=== PATIENT | female | born 1945 | race Two or more races ===

== ENCOUNTER 2018-06-20 16:26 | Emergency (ER) | payer OTHER ==
[2018-06-20 16:47] LABS: ADD MAN DIFF? NO
[2018-06-20] MEDS: morphine 4 MG/ML VIAL IV (16:49)
[2018-06-20] MEDS: ONDANSETRON 4 MG INJ IV (16:50)
[2018-06-20] MEDS: SOD CHLORIDE 0.9% 1,000 ML IV (16:50)
[2018-06-20 16:53] LABS: BASOPHILS % 0.3 % (0.0-2.0); EOSINOPHILS # 0.1 10^3/ul (0.0-0.5); EOSINOPHILS % 0.8 % (0.0-7.0); HEMATOCRIT 39.7 % (37.0-47.0); HEMOGLOBIN 13.1 g/dl (12.0-16.0); LYMPHOCYTES # 2.8 10^3/ul (0.8-2.9); LYMPHOCYTES % 24.1 % (15.0-51.0); MEAN CORPUSCULAR HEMOGLOBIN 30.4 pg (29.0-33.0); MEAN CORPUSCULAR VOLUME 92.1 fl (82.0-101.0); MEAN PLATELET VOLUME 10.1 fl (7.4-10.4); MONOCYTE # 0.8 10^3/ul (0.3-0.9); NEUTROPHIL # 7.7 10^3/ul (1.6-7.5); NEUTROPHILS % 67.6 % (39.0-77.0); PLATELET COUNT 277 10^3/UL (140-415); RED BLOOD COUNT 4.31 10^6/ul (4.20-5.40)
[2018-06-20 16:53] LABS: WHITE BLOOD COUNT 11.4 10^3/ul (4.8-10.8)
[2018-06-20 17:13] LABS: ALANINE AMINOTRANSFERASE 23 IU/L (13-69); ALBUMIN 3.6 g/dl (3.3-4.9); ALKALINE PHOSPHATASE 128 IU/L (42-121); ANION GAP 14 (5-13); ASPARTATE AMINO TRANSFERASE 53 IU/L (15-46); BILIRUBIN,INDIRECT 0.7 mg/dl (0-1.1); BILIRUBIN,TOTAL 0.7 mg/dl (0.2-1.3); BLOOD UREA NITROGEN 22 mg/dl (7-20); CALCIUM 9.6 mg/dl (8.4-10.2); CARBON DIOXIDE 23 mmol/L (21-31); CHLORIDE 103 mmol/L (97-110); CREATININE 0.92 mg/dl (0.44-1.00); Estimated GFR > 60 mL/min (>60); GLUCOSE 228 mg/dl (70-220); LIPASE 140 U/L (23-300); POTASSIUM 4.3 mmol/L (3.5-5.1); SODIUM 140 mmol/L (135-144); TOTAL PROTEIN 7.6 g/dl (6.1-8.1)
[2018-06-20 17:24] LABS: TROPONIN-I < 0.012 ng/ml (0.000-0.120)
[2018-06-20 18:56] LABS: ADD UMIC YES; UR ASCORBIC ACID NEGATIVE (NEGATIVE); UR BILIRUBIN (Dip) NEGATIVE (NEGATIVE); UR BLOOD (Dip) NEGATIVE (NEGATIVE); UR CLARITY CLEAR (CLEAR); UR COLOR YELLOW (YELLOW); UR GLUCOSE (Dip) 1+ mg/dL (NEGATIVE); UR KETONES (Dip) NEGATIVE (NEGATIVE); UR LEUKOCYTE ESTERASE (Dip) NEGATIVE Leu/ul (NEGATIVE); UR NITRITE (Dip) NEGATIVE (NEGATIVE); UR RBC 1 /HPF (0-5); UR SPECIFIC GRAVITY (Dip) 1.009 (1.003-1.030); UR TOTAL PROTEIN (Dip) 1+ mg/dl (NEGATIVE); UR UROBILINOGEN (Dip) 1+ mg/dL (NEGATIVE); UR WBC 1 /HPF (0-5)
== END 2018-06-20 19:20 | disposition home or self-care (01) ==
LOC: E/R 16:26
DX: R10.13 Epigastric pain (principal); I10 Essential (primary) hypertension; R40.2142 Coma scale, eyes open, spontaneous, at arrival to emergency department; R40.2362 Coma scale, best motor response, obeys commands, at arrival to emergency department; R40.2252 Coma scale, best verbal response, oriented, at arrival to emergency department; E11.9 Type 2 diabetes mellitus without complications; R11.0 Nausea; Z79.01 Long term (current) use of anticoagulants; Z79.84 Long term (current) use of oral hypoglycemic drugs
CPT/HCPCS: 36415; 74176; 80053; 81001; 83690; 84484; 85025; 93005; 96374; 96375; 99285-25

== ENCOUNTER 2018-09-06 11:59 | Inpatient (IN) | payer OTHER ==
[2018-09-06] MEDS ORDERED: NITROGLYCERIN (SL) 0.4 MG TAB SL (12:30)
[2018-09-06] MEDS: NITROGLYCERIN 2% 1 GM OINT PKT TD (12:47)
[2018-09-06 12:58] LABS: ADD MAN DIFF? NO
[2018-09-06 13:03] LABS: WHITE BLOOD COUNT 8.7 10^3/ul (4.8-10.8)
[2018-09-06 13:03] LABS: BASOPHILS % 0.5 % (0.0-2.0); EOSINOPHILS # 0.1 10^3/ul (0.0-0.5); EOSINOPHILS % 0.6 % (0.0-7.0); HEMATOCRIT 41.2 % (37.0-47.0); HEMOGLOBIN 13.4 g/dl (12.0-16.0); LYMPHOCYTES # 1.8 10^3/ul (0.8-2.9); LYMPHOCYTES % 20.3 % (15.0-51.0); MEAN CORPUSCULAR HEMOGLOBIN 29.9 pg (29.0-33.0); MEAN CORPUSCULAR HGB CONC 32.5 g/dl (32.0-37.0); MEAN PLATELET VOLUME 10.5 fl (7.4-10.4); MONOCYTE # 0.5 10^3/ul (0.3-0.9); NEUTROPHIL # 6.3 10^3/ul (1.6-7.5); NEUTROPHILS % 72.4 % (39.0-77.0); PLATELET COUNT 290 10^3/UL (140-415); RED BLOOD COUNT 4.48 10^6/ul (4.20-5.40); RED CELL DISTRIBUTION WIDTH 13.2 % (11.5-14.5)
[2018-09-06 13:21] LABS: ANION GAP 12 (5-13); BLOOD UREA NITROGEN 19 mg/dl (7-20); CALCIUM 9.4 mg/dl (8.4-10.2); CARBON DIOXIDE 27 mmol/L (21-31); CHLORIDE 102 mmol/L (97-110); CREATININE 0.84 mg/dl (0.44-1.00); Estimated GFR > 60 mL/min (>60); GLUCOSE 259 mg/dl (70-220); POTASSIUM 4.1 mmol/L (3.5-5.1); SODIUM 141 mmol/L (135-144)
[2018-09-06] MEDS ORDERED: ONDANSETRON 4 MG INJ IV ×2 (13:30→18:00)
[2018-09-06] MEDS ORDERED: ACETAMINOPHEN 325 MG TAB PO ×2 (13:30→18:00)
[2018-09-06 13:32] LABS: TROPONIN-I < 0.012 ng/ml (0.000-0.120)
[2018-09-06] MEDS: METOPROLOL 5 MG INJ IV (14:07)
[2018-09-06] MEDS ORDERED: morphine LIQ (10 MG/5 ML) CUP PO (18:00)
[2018-09-06] MEDS ORDERED: DOCUSATE SODIUM 100 MG CAP PO (18:00)
[2018-09-06] MEDS ORDERED: HYDROCODONE/APAP (5/325) TAB PO (18:00)
[2018-09-06] MEDS ORDERED: NACL 0.9% 3 ML SYG IV (18:00)
[2018-09-06] MEDS ORDERED: ZOLPIDEM 5 MG TAB PO (18:00)
[2018-09-06] MEDS ORDERED: GLUCOSE GEL 15 GRAM TUBE BUCCAL (18:30)
[2018-09-06] MEDS ORDERED: DEXTROSE 50% 50 ML SYRINGE IV ×2 (18:30)
[2018-09-06] MEDS ORDERED: GLUCAGON 1 MG INJ IM (18:30)
[2018-09-06] MEDS ORDERED: GLUCOSE GEL 15 GRAM TUBE PO ×2 (18:30)
[2018-09-06] MEDS: DILTIAZEM-D5W 125MG/125ML DRIP 125 ML IV (18:40)
[2018-09-06 20:08] LABS: CREATINE KINASE 29 IU/L (23-200)
[2018-09-06 20:20] LABS: CK INDEX 1.4; TROPONIN-I < 0.012 ng/ml (0.000-0.120)
[2018-09-06] MEDS: INSULIN ASPART [NOVOLOG] 3 ML PEN SC (21:04)
[2018-09-06] MEDS: ATORVASTATIN 20 MG TAB PO (21:09)
[2018-09-06] MEDS: APIXABAN 5 MG TABLET PO (21:09)
[2018-09-06] MEDS: PANTOPRAZOLE (EC) 40 MG TAB PO (23:20)
[2018-09-06] MEDS: LIDOCAINE/MYLANTA 40 ML BTL PO (23:52)
[2018-09-07 01:08] LABS: CREATINE KINASE 34 IU/L (23-200)
[2018-09-07 01:22] LABS: CK INDEX 1.6; CK-MB 0.55 ng/ml (0.0-2.4); TROPONIN-I 0.013 ng/ml (0.000-0.120)
[2018-09-07] MEDS: ACCU-CHEK XX ×2 (02:34→23:46)
[2018-09-07 05:50] LABS: ADD MAN DIFF? NO
[2018-09-07 05:53] LABS: WHITE BLOOD COUNT 8.6 10^3/ul (4.8-10.8)
[2018-09-07 05:53] LABS: BASOPHILS % 0.2 % (0.0-2.0); EOSINOPHILS # 0.1 10^3/ul (0.0-0.5); EOSINOPHILS % 0.9 % (0.0-7.0); HEMATOCRIT 37.9 % (37.0-47.0); HEMOGLOBIN 12.6 g/dl (12.0-16.0); LYMPHOCYTES # 2.6 10^3/ul (0.8-2.9); LYMPHOCYTES % 30.5 % (15.0-51.0); MEAN CORPUSCULAR HEMOGLOBIN 30.7 pg (29.0-33.0); MEAN CORPUSCULAR HGB CONC 33.2 g/dl (32.0-37.0); MEAN CORPUSCULAR VOLUME 92.2 fl (82.0-101.0); MEAN PLATELET VOLUME 10.2 fl (7.4-10.4); MONOCYTE # 0.6 10^3/ul (0.3-0.9); MONOCYTES % 7.1 % (0.0-11.0); NEUTROPHIL # 5.3 10^3/ul (1.6-7.5); NEUTROPHILS % 61.1 % (39.0-77.0); PLATELET COUNT 245 10^3/UL (140-415); RED BLOOD COUNT 4.11 10^6/ul (4.20-5.40); RED CELL DISTRIBUTION WIDTH 13.3 % (11.5-14.5)
[2018-09-07 06:01] LABS: HEMOGLOBIN A1C 9.3 % (0-5.9)
[2018-09-07 06:24] LABS: ANION GAP 12 (5-13); BLOOD UREA NITROGEN 26 mg/dl (7-20); CALCIUM 9.1 mg/dl (8.4-10.2); CARBON DIOXIDE 28 mmol/L (21-31); CHLORIDE 101 mmol/L (97-110); CREATININE 0.98 mg/dl (0.44-1.00); Estimated GFR 56 mL/min (>60); GLUCOSE 199 mg/dl (70-220); MAGNESIUM 1.8 mg/dl (1.7-2.5); PHOSPHORUS 3.8 mg/dl (2.5-4.9); POTASSIUM 3.3 mmol/L (3.5-5.1); SODIUM 141 mmol/L (135-144)
[2018-09-07] MEDS: INSULIN ASPART [NOVOLOG] 3 ML PEN SC ×7 (07:40→22:13)
[2018-09-07] MEDS: POTASSIUM CHLORIDE (SR) 20 MEQ TAB PO (08:11)
[2018-09-07] MEDS: APIXABAN 5 MG TABLET PO ×2 (08:12→22:08)
[2018-09-07] MEDS: FUROSEMIDE 20 MG TAB PO (08:12)
[2018-09-07] MEDS: AMIODARONE 200 MG TAB PO ×2 (08:12→22:09)
[2018-09-07] MEDS: INSULIN GLARGINE [LANTus] (100 UNITS/ML) SYG SC (08:28)
[2018-09-07] MEDS ORDERED: DILTIAZEM 30 MG TAB PO (19:30)
[2018-09-07] MEDS: ATORVASTATIN 20 MG TAB PO (22:10)
[2018-09-07] MEDS: POTASSIUM CHLORIDE (SR) 10 MEQ TAB PO (22:10)
[2018-09-07] MEDS: MAGNESIUM SULFATE 2 GM/50 ML 50 ML IVPB (23:31)
[2018-09-08 05:29] LABS: ADD MAN DIFF? NO
[2018-09-08 05:38] LABS: WHITE BLOOD COUNT 9.6 10^3/ul (4.8-10.8)
[2018-09-08 05:38] LABS: BASOPHIL # 0.1 10^3/ul (0.0-0.1); BASOPHILS % 1.4 % (0.0-2.0); EOSINOPHILS # 0.1 10^3/ul (0.0-0.5); EOSINOPHILS % 0.8 % (0.0-7.0); HEMATOCRIT 37.3 % (37.0-47.0); HEMOGLOBIN 12.4 g/dl (12.0-16.0); LYMPHOCYTES # 2.9 10^3/ul (0.8-2.9); LYMPHOCYTES % 29.8 % (15.0-51.0); MEAN CORPUSCULAR HEMOGLOBIN 30.5 pg (29.0-33.0); MEAN CORPUSCULAR HGB CONC 33.2 g/dl (32.0-37.0); MEAN CORPUSCULAR VOLUME 91.9 fl (82.0-101.0); MEAN PLATELET VOLUME 10.5 fl (7.4-10.4); MONOCYTE # 0.7 10^3/ul (0.3-0.9); MONOCYTES % 6.8 % (0.0-11.0); NEUTROPHIL # 5.8 10^3/ul (1.6-7.5); NEUTROPHILS % 60.9 % (39.0-77.0); NUCLEATED RED BLOOD CELLS # 0.2 10^3/ul (0.0-0.0); NUCLEATED RED BLOOD CELLS% 1.7 /100WBC (0.0-0.0); PLATELET COUNT 261 10^3/UL (140-415); RED BLOOD COUNT 4.06 10^6/ul (4.20-5.40); RED CELL DISTRIBUTION WIDTH 13.3 % (11.5-14.5)
[2018-09-08 06:01] LABS: ANION GAP 11 (5-13); BLOOD UREA NITROGEN 31 mg/dl (7-20); CALCIUM 9.1 mg/dl (8.4-10.2); CARBON DIOXIDE 27 mmol/L (21-31); CHLORIDE 104 mmol/L (97-110); CREATININE 1.07 mg/dl (0.44-1.00); Estimated GFR 51 mL/min (>60); GLUCOSE 192 mg/dl (70-220); POTASSIUM 3.8 mmol/L (3.5-5.1); SODIUM 142 mmol/L (135-144)
[2018-09-08 06:08] LABS: MAGNESIUM 2.3 mg/dl (1.7-2.5)
[2018-09-08] MEDS: INSULIN ASPART [NOVOLOG] 3 ML PEN SC ×4 (07:47→17:56)
[2018-09-08] MEDS: APIXABAN 5 MG TABLET PO ×2 (08:04→20:41)
[2018-09-08] MEDS: AMIODARONE 200 MG TAB PO ×2 (08:04→20:41)
[2018-09-08] MEDS: FUROSEMIDE 20 MG TAB PO (08:04)
[2018-09-08] MEDS: INSULIN GLARGINE [LANTus] (100 UNITS/ML) SYG SC ×2 (08:09→12:18)
[2018-09-08] MEDS: FUROSEMIDE 20 MG INJ IV (11:35)
[2018-09-08 12:21] LABS: B-TYPE NATRIURETIC PEPTIDE 1940 PG/ML (0-125)
[2018-09-08 12:29] LABS: FREE T3 2.81 pg/ml (2.77-5.27)
[2018-09-08 12:29] LABS: FREE T4 (FREE THYROXINE) 1.75 ng/dl (0.78-2.44)
[2018-09-08] MEDS: DOCUSATE SODIUM 100 MG CAP PO (17:16)
[2018-09-08] MEDS: ATORVASTATIN 20 MG TAB PO (20:40)
[2018-09-09] MEDS: ACCU-CHEK XX (02:00)
[2018-09-09 05:39] LABS: ADD MAN DIFF? NO
[2018-09-09] MEDS: DOCUSATE SODIUM 100 MG CAP PO ×2 (05:40→17:28)
[2018-09-09 05:50] LABS: BASOPHILS % 0.2 % (0.0-2.0); EOSINOPHILS # 0.1 10^3/ul (0.0-0.5); EOSINOPHILS % 1.3 % (0.0-7.0); HEMATOCRIT 38.3 % (37.0-47.0); HEMOGLOBIN 12.3 g/dl (12.0-16.0); LYMPHOCYTES # 2.6 10^3/ul (0.8-2.9); LYMPHOCYTES % 28.1 % (15.0-51.0); MEAN CORPUSCULAR HGB CONC 32.1 g/dl (32.0-37.0); MEAN CORPUSCULAR VOLUME 93.4 fl (82.0-101.0); MEAN PLATELET VOLUME 10.3 fl (7.4-10.4); MONOCYTE # 0.6 10^3/ul (0.3-0.9); MONOCYTES % 6.8 % (0.0-11.0); NEUTROPHIL # 5.9 10^3/ul (1.6-7.5); NEUTROPHILS % 63.3 % (39.0-77.0); PLATELET COUNT 258 10^3/UL (140-415); RED CELL DISTRIBUTION WIDTH 13.3 % (11.5-14.5)
[2018-09-09 05:50] LABS: WHITE BLOOD COUNT 9.3 10^3/ul (4.8-10.8)
[2018-09-09 06:14] LABS: ANION GAP 9 (5-13); BLOOD UREA NITROGEN 37 mg/dl (7-20); CARBON DIOXIDE 28 mmol/L (21-31); CHLORIDE 102 mmol/L (97-110); CREATININE 1.11 mg/dl (0.44-1.00); Estimated GFR 49 mL/min (>60); GLUCOSE 150 mg/dl (70-220); PHOSPHORUS 4.3 mg/dl (2.5-4.9); POTASSIUM 3.4 mmol/L (3.5-5.1); SODIUM 139 mmol/L (135-144)
[2018-09-09] MEDS: FUROSEMIDE 20 MG TAB PO (08:40)
[2018-09-09] MEDS: AMIODARONE 200 MG TAB PO (08:40)
[2018-09-09] MEDS: APIXABAN 5 MG TABLET PO (08:41)
[2018-09-09] MEDS: INSULIN GLARGINE [LANTus] (100 UNITS/ML) SYG SC (08:48)
[2018-09-09] MEDS: INSULIN ASPART [NOVOLOG] 3 ML PEN SC ×3 (08:48→17:28)
[2018-09-09] MEDS: POTASSIUM CHLORIDE (SR) 20 MEQ TAB PO (14:45)
== END 2018-09-09 18:20 | disposition home health service (06) | DRG 308 ==
LOC: E/R 11:59 → 6WM 13:29
DX: I48.91 Unspecified atrial fibrillation (principal); I50.33 Acute on chronic diastolic (congestive) heart failure; Z68.42 Body mass index [BMI] 45.0-49.9, adult; I13.0 Hypertensive heart and chronic kidney disease with heart failure and stage 1 through stage 4 chronic kidney disease, or unspecified chronic kidney disease; R00.2 Palpitations; E66.01 Morbid (severe) obesity due to excess calories; Z86.74 Personal history of sudden cardiac arrest; Z95.810 Presence of automatic (implantable) cardiac defibrillator; R06.03 Acute respiratory distress; R05 Cough; E11.22 Type 2 diabetes mellitus with diabetic chronic kidney disease; N18.9 Chronic kidney disease, unspecified; I72.2 Aneurysm of renal artery; I34.0 Nonrheumatic mitral (valve) insufficiency
CPT/HCPCS: 36415; 71045; 71250; 80048; 82550; 82553; 82962; 83036; 83735; 83880; 84100; 84439; 84443; 84481; 84484; 85025; 93005; 93306; 97162; 99291-25